=== PATIENT | female | born 1950 | race Caucasian/White ===

== ENCOUNTER 2019-01-05 12:58 | Emergency (ER) | payer MEDICARE, OTHER ==
[~2019-01-05] VITALS: Ht 162.6 cm; Wt 70.3 kg
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
[2019-01-05 13:15] LABS: BASOPHILS % (AUTO) 0 % (0-10); EOSINOPHILS # (AUTO) 0.3 10^3/uL (0.0-0.3); EOSINOPHILS % (AUTO) 3 % (0-10); HEMATOCRIT 43 % (35-52); LYMPHOCYTES # (AUTO) 4.9 X 10^3 (1.0-4.0); LYMPHOCYTES % (AUTO) 52 % (12-44); MEAN CORPUSCULAR HEMOGLOBIN 30 PG (25-34); MEAN CORPUSCULAR HGB CONC 33 G/DL (32-36); MEAN CORPUSCULAR VOLUME 92 FL (80-99); MEAN PLATELET VOLUME 10.3 FL (7.4-10.4); MONOCYTES # (AUTO) 0.5 X 10^3 (0.0-1.0); MONOCYTES % (AUTO) 6 % (0-12); NEUTROPHILS # (AUTO) 3.6 X 10^3 (1.8-7.8); NEUTROPHILS % (AUTO) 39 % (42-75); PLATELET COUNT 278 10^3/uL (130-400); WHITE BLOOD COUNT 9.3 10^3/uL (4.3-11.0)
[2019-01-05 13:28] LABS: FIBRIN DEGRADATION PRODUCTS 0.63 UG/ML (0.00-0.49); INR 0.9 (0.8-1.4); PROTHROMBIN TIME PATIENT 12.4 SEC (12.2-14.7)
[2019-01-05] MEDS ORDERED: MECLIZINE 25 MG (ANTIVERT) TAB PO ONE (13:30)
[2019-01-05 13:31] LABS: ALANINE AMINOTRANSFERASE 22 U/L (0-55); ALBUMIN 4.2 GM/DL (3.2-4.5); ALKALINE PHOSPHATASE 56 U/L (40-136); BILIRUBIN,TOTAL 0.6 MG/DL (0.1-1.0); BUN/CREATININE RATIO 19; CALCIUM 10.1 MG/DL (8.5-10.1); CARBON DIOXIDE 20 MMOL/L (21-32); CHLORIDE 106 MMOL/L (98-107); CREATININE SERUM 0.96 MG/DL (0.60-1.30); GFR ESTIMATED 58; GLUCOSE 154 MG/DL (70-105); POTASSIUM 3.2 MMOL/L (3.6-5.0); SODIUM 141 MMOL/L (135-145); TOTAL PROTEIN 6.5 GM/DL (6.4-8.2)
--- NOTE | 2019-01-05 13:32 | ED Neurological Problem ---
General Chief Complaint: Neuro-Stroke Like Symptoms Stated Complaint: DIZZY Source: patient, family, EMS Exam Limitations: no limitations History of Present Illness Date Seen by Provider: Jan 05, 2019 Time Seen by Provider: 12:58 Initial Comments Here with report of acute onset dizziness after having dental procedure done. She was at the dentist office getting crowns done and was lying back in the chair for quite a while. She had been able to get up to go the bathroom and then after that she got incredibly dizzy and then had nausea and vomiting. EMS was summoned. They did initiate IV and give Zofran 4 mg IV. This did help. On arrival she was still somewhat dizzy but then started having confusion and speech difficulty. Stroke activation at that time Timing/Duration: 1/2 hour Severity: moderate Associated Symptoms: confusion, nausea/vomiting; No slurred speech; other ( dizziness) Allergies and Home Medications Allergies Coded Allergies: No Known Drug Allergies (Unverified , 01/05/19) Patient Home Medication List Home Medication List Reviewed: Yes (home meds list reviewed) Review of Systems Review of Systems Constitutional: see HPI; No chills, No fever Eyes: See HPI Ears, Nose, Mouth, Throat: no symptoms reported Respiratory: No short of breath, No wheezing Cardiovascular: No chest pain, No edema Gastrointestinal: No abdominal pain; nausea, vomiting Genitourinary: no symptoms reported Musculoskeletal: no symptoms reported Skin: no symptoms reported Psychiatric/Neurological: See HPI, Cognitive Dysfunction; Denies Headache; Weakness, Other (dizziness) Endocrine: No Symptoms Reported All Other Systems Reviewed Negative Unless Noted: Yes Past Serkrmr-Rnzvqw-Ulixyx Hx Past Med/Social Hx: Reviewed Nursing Past Med/Soc Hx Patient Social History Recent Foreign Travel: No Contact w/Someone Who Travel: No Past Medical History Surgeries: Yes Thyroidectomy Respiratory: No Cardiac: Yes High Cholesterol, Hypertension Neurological: Yes Seizure Disorder, Traumatic Brain Injury Gastrointestinal: No Musculoskeletal: No Endocrine: No Cancer: No Family Medical History Reviewed Nursing Family Hx Physical Exam Vital Signs Vital Signs - First Documented 01/05/19 13:05 Temp 96.6 Pulse 99 Resp 16 B/P (MAP) 144/84 (104) Pulse Ox 97 O2 Delivery Room Air Capillary Refill : Height, Weight, BMI Height: '" Weight: lbs. oz. kg; BMI Method: General Appearance: WD/WN, mild distress HEENT: PERRL/EOMI, TMs normal, pharynx normal Neck: full range of motion, supple Respiratory: lungs clear, normal breath sounds Cardiovascular: regular rate, rhythm, no murmur Gastrointestinal: non tender, soft Back: normal inspection, no CVA tenderness, no vertebral tenderness Extremities: non-tender, normal inspection Neurologic/Psychiatric: alert, normal mood/affect Crainal Nerves: PERRL, other (difficulty forming words) Coordination/Gait: normal finger to nose Motor/Sensory: no motor deficit, no sensory deficit, no pronator drift Skin: normal color, warm/dry Progress/Results/Core Measures Results/Orders Lab Results Laboratory Tests Test 01/05/19 13:05 01/05/19 14:35 Range/Units White Blood Count 9.3 4.3-11.0 10^3/uL Red Blood Count 4.66 4.35-5.85 10^6/uL Hemoglobin 14.0 11.5-16.0 G/DL Hematocrit 43 35-52 % Mean Corpuscular Volume 92 80-99 FL Mean Corpuscular Hemoglobin 30 25-34 PG Mean Corpuscular Hemoglobin Concent 33 32-36 G/DL Red Cell Distribution Width 13.0 10.0-14.5 % Platelet Count 278 130-400 10^3/uL Mean Platelet Volume 10.3 7.4-10.4 FL Neutrophils (%) (Auto) 39 L 42-75 % Lymphocytes (%) (Auto) 52 H 12-44 % Monocytes (%) (Auto) 6 0-12 % Eosinophils (%) (Auto) 3 0-10 % Basophils (%) (Auto) 0 0-10 % Neutrophils # (Auto) 3.6 1.8-7.8 X 10^3 Lymphocytes # (Auto) 4.9 H 1.0-4.0 X 10^3 Monocytes # (Auto) 0.5 0.0-1.0 X 10^3 Eosinophils # (Auto) 0.3 0.0-0.3 10^3/uL Basophils # (Auto) 0.0 0.0-0.1 10^3/uL Prothrombin Time 12.4 12.2-14.7 SEC INR Comment 0.9 0.8-1.4 Activated Partial Thromboplast Time 23 L 24-35 SEC D-Dimer 0.63 H 0.00-0.49 UG/ML Sodium Level 141 135-145 MMOL/L Potassium Level 3.2 L 3.6-5.0 MMOL/L Chloride Level 106 98-107 MMOL/L Carbon Dioxide Level 20 L 21-32 MMOL/L Anion Gap 15 H 5-14 MMOL/L Blood Urea Nitrogen 18 7-18 MG/DL Creatinine 0.96 0.60-1.30 MG/DL Estimat Glomerular Filtration Rate 58 BUN/Creatinine Ratio 19 Glucose Level 154 H 70-105 MG/DL Calcium Level 10.1 8.5-10.1 MG/DL Corrected Calcium 9.9 8.5-10.1 MG/DL Total Bilirubin 0.6 0.1-1.0 MG/DL Aspartate Amino Transf (AST/SGOT) 27 5-34 U/L Alanine Aminotransferase (ALT/SGPT) 22 0-55 U/L Alkaline Phosphatase 56 40-136 U/L Troponin I < 0.028 <0.028 NG/ML Total Protein 6.5 6.4-8.2 GM/DL Albumin 4.2 3.2-4.5 GM/DL Thyroid Stimulating Hormone (TSH) 1.00 0.35-4.94 UIU/ML Urine Color YELLOW Urine Clarity CLEAR Urine pH 7 5-9 Urine Specific [place] 1.010 L 1.016-1.022 Urine Protein 1+ H NEGATIVE Urine Glucose (UA) NEGATIVE NEGATIVE Urine Ketones 4+ H NEGATIVE Urine Nitrite NEGATIVE NEGATIVE Urine Bilirubin NEGATIVE NEGATIVE Urine Urobilinogen NORMAL NORMAL MG/DL Urine Leukocyte Esterase NEGATIVE NEGATIVE Urine RBC (Auto) 1+ H NEGATIVE Urine RBC RARE /HPF Urine WBC NONE /HPF Urine Squamous Epithelial Cells NONE /HPF Urine Crystals NONE /LPF Urine Bacteria NEGATIVE /HPF Urine Casts NONE /LPF Urine Mucus NEGATIVE /LPF Urine Culture Indicated NO My Orders Orders - MARLO COTTRELL MD Cbc With Automated Diff (01/05/19 13:04) Protime With Inr (01/05/19 13:04) Partial Thromboplastin Time (01/05/19 13:04) Comprehensive Metabolic Panel (01/05/19 13:04) Fibrin Degradation Products (01/05/19 13:04) Troponin I (01/05/19 13:04) Ua Culture If Indicated (01/05/19 13:04) Chest 1 View, Ap/Pa Only (01/05/19 13:04) Ekg Tracing (01/05/19 13:04) Nothing By Mouth (01/05/19 Dinner) Accucheck Stat ONCE (01/05/19 13:04) Saline Lock/Iv-Start (01/05/19 13:04) Saline Lock/Iv-Start (01/05/19 13:04) Vital Signs Stroke Patient Q15M (01/05/19 13:04) Ct Head Wo-R/O Stroke (01/05/19 13:04) O2 (01/05/19 13:04) Intake & Output 06,14,22 (01/05/19 13:04) Monitor-Rhythm Ecg Trace Only (01/05/19 13:04) Dysphagia Screening Tool (01/05/19 13:04) Meclizine Tablet (Antivert Tablet) (01/05/19 13:30) Thyroid Stimulating Hormone (01/05/19 13:20) Ct Angio Head/Neck (01/05/19 13:34) Saline Lock/Iv-Start (01/05/19 13:34) Ns Iv 1000 Ml (Sodium Chloride 0.9%) (01/05/19 13:34) Saline Lock/Iv-Start (01/05/19 13:37) Saline Lock/Iv-Start (01/05/19 13:37) O2 (01/05/19 13:37) Iohexol Injection (Omnipaque 350 Mg/Ml 1 (01/05/19 13:45) Received Contrast (Hold Metformin- Contr (01/05/19 13:45) Medications Given in ED Current Medications Medications Dose Ordered Sig/Hardeep Route Start Time Stop Time Status Last Admin Dose Admin Meclizine HCl 25 mg ONCE ONCE PO 01/05/19 13:30 01/05/19 13:31 DC 01/05/19 13:44 25 MG Sodium Chloride 1,000 ml @ 0 mls/hr Q0M ONCE IV 01/05/19 13:34 01/05/19 13:35 DC 01/05/19 13:45 500 MLS/HR Vital Signs/I&O 01/05/19 13:05 Temp 96.6 Pulse 99 Resp 16 B/P (MAP) 144/84 (104) Pulse Ox 97 O2 Delivery Room Air Progress Progress Note : Progress Note By EMS. Labs, chest x-ray, CT head, EKG and stroke workup initiated. Stroke team activation. Initial stroke scale 0. She did have intermittent difficulty with speech in forming words. Does have dizziness that is not evaluated on stroke scale. Rapid CT head done. Normal saline 1 L bolus ordered. We will get CT angiogram of the head and neck due to symptoms. There is no bleed and this was discussed with the radiologist. Monitor patient. 1415: Patient is resolved now and she is able to stand and walk without difficulty. Results from the CT angiogram pending. 1445: I did discuss the results with the radiologist. There is no acute findings on CT angiogram of the head and neck. Patient remains resolved. She did receive meclizine earlier 25 mg by mouth. 1509: Symptoms remained resolved. We will continue IV fluids but at this point I believe she is safe for discharge. I did discuss all of the findings concerns with her and her family. She will follow-up with her doctor for continued evaluation as needed. There was no significant demonstrated all lesions or concerns on any of the scans. Discharged home with return precautions. Patient verbalize understanding instructions and agreement with plan. Diagnostic Imaging Diagonstic Imaging: Xray Plain Films/CT/US/NM/MRI: chest Comments [facility] [place] [place] [id number] PT STATUS: REG ER : 1950 PHYSICIAN: MARLO COTTRELL MD ADMIT DATE: 01/05/19/ER Draft Date of Exam:01/05/19 CHEST 1 VIEW, AP/PA ONLY INDICATION: Dizziness and vomiting. Time of exam 1:11 PM No prior studies are available for comparison. The heart size is normal. The pulmonary vascularity is unremarkable. The lungs are clear. No infiltrate, effusion or pneumothorax is detected. Impression: No acute cardiopulmonary process is detected. Dictated on workstation # [id number] Dict: 01/05/19 1425 Trans: 01/05/19 1426 [facility] [id number] Interpreted by: HAROLDO ARGUELLES MD Electronically signed by: Diagonstic Imaging: CT Plain Films/CT/US/NM/MRI: head Comments [facility] [place], [place] NAME: CAREN [facility] REC#: [id number] PT STATUS: REG ER : 1950 PHYSICIAN: MARLO COTTRELL MD ADMIT DATE: 01/05/19/ER Draft Date of Exam:01/05/19 CT HEAD WO-R/O STROKE INDICATION: Altered mental status. TECHNIQUE: Routine non contrast-enhanced axial images were obtained from the skull base to the vertex. Auto Exposure Controls were utilized during the CT exam to meet ALARA standards for radiation dose reduction COMPARISON: None. FINDINGS: The ventricles and cortical sulci are age-appropriate. There are a few scattered subtle punctate areas of decreased attenuation within the subcortical deep white matter (image 20, series 3). Findings are suggestive of small vessel ischemic disease; likely chronic. There is however no prior available for comparison. There is no midline shift or mass-effect. No acute intra-axial hemorrhage is seen. There are no abnormal areas of increased or decreased density to suggest acute hemorrhage or edema. No extra-axial masses or collections are present. The bony calvarium is intact. The visualized paranasal sinuses are unremarkable. The mastoid air cells are clear. IMPRESSION: 1. No acute intracranial abnormality. No CT evidence of mass, acute infarct or intracranial hemorrhage. 2. Subtle small vessel ischemic changes within the deep white matter; likely chronic. Results were called to Dr. Cottrell by Dr. Victor at approximately 1343 hrs on 01/05/2019. Dictated on workstation # [id number] Dict: 01/05/19 1340 Trans: 01/05/19 1348 [facility] [id number] Interpreted by: BROOKLYN VICTOR MD Electronically signed by: Departure Impression Primary Impression: Vertigo Disposition: 01 HOME, SELF-CARE Condition: Improved Departure-Patient Inst. Decision time for Depature: 15:10 Patient Instructions: Transient Ischemic Attack (DC), Vertigo (a Type of Dizziness) (DC) Add. Discharge Instructions: All discharge instructions reviewed with patient and/or family. Voiced understanding. To plenty fluids and eat a normal diet. Follow-up with your doctor this week for recheck and further evaluation. You may use meclizine (Antivert) 25 mg every 8 hours as needed for dizziness or vertigo symptoms. Return for worse pain , weakness, dizziness, vision or balance problems, difficulty with speech or other concerns as needed. MARLO COTTRELL MD Jan 05, 2019 13:32
[2019-01-05] MEDS ORDERED: NS IV 1000 ML 1,000 ML IV ONE (13:34)
[2019-01-05] MEDS ORDERED: HOLD METFORMIN - RECEIVED CONTRAST 20 ML VIAL IV SCH (13:45)
[2019-01-05] MEDS ORDERED: IOHEXOL 350 MG/ML 100 ML (OMNIPAQUE 350) VIAL IV ONE (13:45)
--- NOTE | 2019-01-05 13:48 | Diagnostic Imaging Report ---
INDICATION: Altered mental status. TECHNIQUE: Routine non contrast-enhanced axial images were obtained from the skull base to the vertex. Auto Exposure Controls were utilized during the CT exam to meet ALARA standards for radiation dose reduction COMPARISON: None. FINDINGS: The ventricles and cortical sulci are age-appropriate. There are a few scattered subtle punctate areas of decreased attenuation within the subcortical deep white matter (image 20, series 3). Findings are suggestive of small vessel ischemic disease; likely chronic. There is however no prior available for comparison. There is no midline shift or mass-effect. No acute intra-axial hemorrhage is seen. There are no abnormal areas of increased or decreased density to suggest acute hemorrhage or edema. No extra-axial masses or collections are present. The bony calvarium is intact. The visualized paranasal sinuses are unremarkable. The mastoid air cells are clear. IMPRESSION: 1. No acute intracranial abnormality. No CT evidence of mass, acute infarct or intracranial hemorrhage. 2. Subtle small vessel ischemic changes within the deep white matter; likely chronic. Results were called to Dr. Malcolm by Dr. Singleton at approximately 1343 hrs on 01/05/2019. Dictated by: Dictated on workstation # [id number]
--- NOTE | 2019-01-05 14:27 | Diagnostic Imaging Report ---
INDICATION: Dizziness and vomiting. Time of exam 1:11 PM No prior studies are available for comparison. The heart size is normal. The pulmonary vascularity is unremarkable. The lungs are clear. No infiltrate, effusion or pneumothorax is detected. Impression: No acute cardiopulmonary process is detected. Dictated by: Dictated on workstation # [id number]
--- NOTE | 2019-01-05 14:30 | NUR ---
AFTER PT RETURNED FROM CT PT STATED SHE FELT MUCH BETTER, PT ALSO LOOKED MORE ALERT. PT GOT UP AND AMBULATED TO THE RESTROOM ON HER OWN POWER WITH NO ISSUES. FAMILY BROUGHT BACK TO RM.
[2019-01-05 14:44] LABS: BILIRUBIN,URINE NEGATIVE (NEGATIVE); CLARITY,URINE CLEAR; COLOR,URINE YELLOW; GLUCOSE, URINE (UA) NEGATIVE (NEGATIVE); KETONES,URINE 4+ (NEGATIVE); LEUKOCYTE ESTERASE ,URINE NEGATIVE (NEGATIVE); NITRITE,URINE NEGATIVE (NEGATIVE); PH,URINE 7 (5-9); PROTEIN,URINE 1+ (NEGATIVE); UROBILINOGEN,URINE NORMAL (NORMAL)
--- NOTE | 2019-01-05 14:51 | Diagnostic Imaging Report ---
PROCEDURE: CT angiography of the head and CT angiography of the neck with and without contrast. TECHNIQUE: Contiguous noncontrast images were obtained from the skull base through the vertex. After intravenous contrast administration, helical CT angiography of the neck was performed. Source data was reformatted into multiple MIP projections. Delayed post contrast acquisition was also obtained. Auto Exposure Controls were utilized during the CT exam to meet ALARA standards for radiation dose reduction. INDICATION: Weakness. There is a normal three-vessel branching pattern to the aortic arch. Both common carotid arteries are widely patent. Both carotid bifurcations are widely patent. Internal carotid arteries demonstrate some tortuosity but appear to be widely patent. There is normal opacification of bilateral middle cerebral arteries without evidence of thromboemboli. Bilateral anterior cerebral arteries are widely patent. The vertebral arteries appear to be codominant and widely patent. The basilar artery is patent. Posterior cerebral arteries appear to be patent. There is a left posterior communicating artery with hypoplastic P1 segment on the left, a normal variant. IMPRESSION: Unremarkable CT angiogram of the head and neck. No thrombi emboli or dissection is identified. Dictated by: Dictated on workstation # [id number]
[2019-01-05 14:52] LABS: BACTERIA,URINE NEGATIVE /HPF; RBC,URINE RARE /HPF
[2019-01-05 15:38] VITALS: BP 130/80
== END 2019-01-05 15:38 | disposition home or self-care (01) ==
LOC: ER 12:59
DX: R42 Dizziness and giddiness (principal); E78.00 Pure hypercholesterolemia, unspecified; I10 Essential (primary) hypertension; G40.909 Epilepsy, unspecified, not intractable, without status epilepticus; Z90.89 Acquired absence of other organs; Z87.820 Personal history of traumatic brain injury
CPT/HCPCS: 36415; 70450; 70496; 70498; 71045; 80053; 81000; 84443; 84484; 85025; 85379; 85610; 85730; 93041; 96360; 96361